=== PATIENT | male | born 1935 | race Caucasian/White ===

== ENCOUNTER → 2016-09-26 | Outpatient (CLI) | payer MEDICARE ==
[2015-01-20 11:50] VITALS: BP 166/74
[~2016-09-26] MED LIST: ASPI81TA44 PO; FURO80TA72 PO
--- NOTE | 2016-09-27 11:38 | RAD ---
APPROVED REPORT Patient Location: OUT-PATIENT Indications AAA [place] scale images of the abdominal aorta demonstrate ectasia and soft plaque. The dimensions are note d above and appear stable in comparison to CT scan from 1 year prior. Duplex Results A/PTransverseLongitudinal Proximal Aorta 2.5cm3.2cm Mid Aorta 2.7cm2.9cm Distal Aorta 4.1cm4.2cm Doppler VelocityWaveform Proximal Aorta 95.0 cm/secTriphasic Aorta Mid. 45.0 cm/secBiphasic Distal Aorta 39.0 cm/secBiphasic Critical Notification Critical Value: No <Conclusion> Stable infrarenal AAA measuring approximately 4.3 mm in greatest transverse dimension, stable compare d to prior CT scan from 1 year ago.
== END | disposition home or self-care (01) ==
LOC: US 09:01
PROVIDERS: ATTEND Internal Medicine Cardiovascular Disease
DX: I71.4 Abdominal aortic aneurysm, without rupture (principal)
CPT/HCPCS: 76770

== ENCOUNTER → 2017-07-22 | Outpatient (CLI) | payer MEDICARE, BC ==
[2015-01-20 11:50] VITALS: BP 166/74
--- NOTE | 2017-07-22 10:26 | RAD ---
Indication: Shortness of breath with cough for 2 to 3 days Technique: PA and lateral views of the chest Comparison: Previous study from 12/02/2015 Findings: Median sternotomy noted. Ectatic thoracic aorta noted. Bibasilar linear opacities suggesting scarring or subsegmental atelectasis. No pneumothorax or pleural effusion. Postsurgical clips are seen in the right scapular region. Vascular stent is seen projecting over the left shoulder. Visualized bony thorax is within normal limits. Impression: No acute cardiopulmonary process. Stable ectatic thoracic aorta.
== END | disposition home or self-care (01) ==
LOC: RAD 09:42
PROVIDERS: ATTEND General Practice
DX: R06.02 Shortness of breath (principal); Z87.891 Personal history of nicotine dependence
CPT/HCPCS: 71046

== ENCOUNTER → 2018-09-12 | Outpatient (CLI) | payer MEDICARE ==
[2015-01-20 11:50] VITALS: BP 166/74
[~2018-09-12] MED LIST changes: -ASPI81TA44 PO; +ASPI81TA59 PO
--- NOTE | 2018-09-12 15:06 | RAD ---
EXAM: Right shoulder, 3 views. HISTORY: Fall. Pain. COMPARISON: None. FINDINGS: 3 views of the right shoulder obtained. There is an acute appearing displaced fracture along the lateral aspect of the acromion. The fracture fragment measures approximately 1.7 cm. The acromial clavicular joint is intact, with slight degenerative subchondral sclerosis. There is a central venous catheter terminating within the superior right atrium. There are surgical clips within the right upper thorax. There are median sternotomy wires. IMPRESSION: 1. Mildly displaced fracture of the lateral aspect of the acromion. 2. Minimal acromioclavicular osteoarthritis. Electronically signed by: Naila Sebastian MD (09/12/2018 3:03 PM) [id number]
== END | disposition home or self-care (01) ==
LOC: PMG 14:39
PROVIDERS: ATTEND Physician Assistant
DX: S42.121A Displaced fracture of acromial process, right shoulder, initial encounter for closed fracture (principal); M19.011 Primary osteoarthritis, right shoulder; X58.XXXA Exposure to other specified factors, initial encounter; Y93.89 Activity, other specified; Y92.89 Other specified places as the place of occurrence of the external cause; Y99.8 Other external cause status
CPT/HCPCS: 73030